=== PATIENT | female | born 1970 | race Caucasian/White ===

== ENCOUNTER → 2017-08-07 | Outpatient (CLI) | payer OTHER ==
--- NOTE | 2017-08-07 09:47 | KCIC ---
Bilateral digital screening mammograms: Reason for examination: Routine screening. Comparison is made to previous studies dated 12/02/2014 and 12/08/2011. Interpretation was made with the benefit of CAD. The skin and nipples show no abnormalities. No abnormal axillary lymph nodes are seen. The breast parenchyma shows scattered fibroglandular density. (Breast density: Category B.) There are small nodules present in the right breast posteriorly and centrally in the oblique view and inferiorly in the oblique view. Further evaluation with ultrasound is recommended. There are no other dominant masses, suspicious calcifications or architectural distortions. Scattered and clustered but benign-appearing calcifications are again present. Impression: Small nodular densities seen posterior centrally and inferiorly in the right breast. Recommend further evaluation with ultrasound. BI-RADS category 0: Incomplete. Ultrasound follow-up is recommended. "Our facility is accredited by the [employer] Mammography [employer]." This patient's information has been entered into a reminder system for the patient to be notified with the results of her examination and a target date for the next mammogram. Electronically signed by: Leeann Candelaria MD (08/07/2017 9:44 AM) [id number]
== END | disposition home or self-care (01) ==
LOC: KCIC MAMMO 08:18
PROVIDERS: ATTEND Obstetrics & Gynecology
DX: Z12.31 Encounter for screening mammogram for malignant neoplasm of breast (principal)
CPT/HCPCS: G0202; 77067

== ENCOUNTER → 2017-08-13 | Outpatient (CLI) | payer OTHER ==
--- NOTE | 2017-08-13 15:01 | KCIC ---
Indication: Right breast nodules. Studies performed for further evaluation. Correlation is made with screening study from 08/07/2017. Sonographic interrogation of the right breast was performed. There is a tiny hypoechoic nodule at the 1:00 location of the right breast measuring approximately 2 mm in size. This does not likely account for the mammographic abnormality. No other sonographic abnormalities are seen. Impression: BI-RADS Category 3: Probably benign. No significant sonographic abnormality is seen to account for the well-defined densities noted on recent screening mammogram. Even so, follow-up right mammogram in 6 months is recommended to show continued stability of the previously noted circumscribed densities.
== END | disposition home or self-care (01) ==
LOC: KCIC MAMMO 13:13
PROVIDERS: ATTEND Family Medicine
DX: N63.10 Unspecified lump in the right breast, unspecified quadrant (principal)
CPT/HCPCS: 76641